=== PATIENT | female | born 1975 | race African-American/Black ===

== ENCOUNTER 2025-04-08 11:06 | Day surgery (SDC) | payer BC ==
[2025-04-08 08:20] LABS: Absolute Lymphocytes (CBC) 2.3 K/uL (0.7-4.9); Hematocrit 42.9 % (36.0-45.0); Hemoglobin 14.2 g/dL (12.0-15.0); MCH 26.6 pg (27.0-35.0); MCHC 33.0 g/dL (32.0-36.0); MCV 80.4 fL (80-100); MPV 9.1 fL (7.6-11.3); Nucleated RBC Absolute Count 0.0 (0-0); Nucleated Red Blood Cells % 0.1 % (0-0); RBC Red Blood Cell Count 5.34 M/uL (3.86-4.86); White Blood Count 5.60 thou/uL (4.3-10.9)
[2025-04-08 08:37] LABS: ALT/SGPT 26.0 U/L (13-56); AST/SGOT 20.0 U/L (15-37); Albumin 3.4 g/dL (3.4-5.0); Albumin/Globulin Ratio 0.9 (1.1-1.8); Alkaline Phosphatase 51.0 U/L (45-117); Anion Gap 10.2 mEq/L (5.0-15.0); BUN Blood Urea Nitrogen 11.0 mg/dL (7-18); Bilirubin Indirect, Calculated 0.5 mg/dL (0.2-0.8); Globulin 3.7 g/dL (2.3-3.5); Glucose Level 103.0 mg/dL (74-106); Lipase 28.0 U/L (13-75); Potassium 4.2 mEq/L (3.5-5.1)
--- NOTE | 2025-04-08 08:38 | RAD REPORT ---
EXAMINATION: TWO VIEW CHEST XR CLINICAL INDICATION: pre op for day surgery TECHNIQUE: 2 views of the chest was performed. COMPARISON: No prior exam. FINDINGS: The lungs are well inflated and clear. The heart is upper limit of normal in size. No displaced fract ures evident. IMPRESSION: No acute or significant abnormalities.
[2025-04-08] MEDS ORDERED: Ringers Lactate 1,000 ML IV ONE (11:33)
[2025-04-08] MEDS ORDERED: BUPIVACAINE 0.5% PF 10 ML VIAL ONE (12:52)
[2025-04-08] MEDS ORDERED: MIDAZOLAM HCL 2 MG/2 ML INJ ONE (13:10)
[2025-04-08] MEDS ORDERED: ONDANSETRON 4 MG/2 ML VIAL ONE (13:10)
[2025-04-08] MEDS ORDERED: LIDOCAINE 2% MPF 5 ML VIAL ONE (13:10)
[2025-04-08] MEDS ORDERED: ROCURONIUM 50 MG/5 ML VIAL IV ONE (13:10)
[2025-04-08] MEDS ORDERED: FENTANYL CITR 100 MCG/2 ML ONE (13:10)
[2025-04-08] MEDS ORDERED: SUGAMMADEX SODIUM 200 MG/2 ML VIAL IV ONE (13:15)
[2025-04-08] MEDS: CEFOXITIN SODIUM 1 GM/VIAL ONE (13:45)
[2025-04-08] MEDS ORDERED: KETOROLAC 30 MG/ML INJ ONE (14:26)
--- NOTE | 2025-04-08 14:53 | P.BOP ---
Preoperative diagnosis: acute cholecystitis, symptomatic cholelithiasis, tender umbilical hernia Postoperative diagnosis: same Primary procedure: Laparoscopic cholecystectomy Secondary procedure: Open repair of 2 cmUmbilical hernia Estimated blood loss: <10cc Specimen: gb, sac Findings: as above Anesthesia: General Complications: None Transferred to: Recovery Room Condition: Good
[2025-04-08] MEDS ORDERED: HYDROCODONE/APAP 10/325 TAB ONE (16:37)
[2025-04-08] MEDS: HYDROCODONE/APAP 10/325 TAB PO ONE (16:39)
[2025-04-08] MEDS: ONDANSETRON 4 MG/2 ML VIAL ONE (16:44)
[2025-04-08 16:54] VITALS: BP 159/72; TEMP 97.7; O2SAT 95
--- NOTE | 2025-04-08 20:28 | OP ---
Date of Procedure: 04/08/2025 Surgeon: Garcia Palm MD Preoperative Diagnoses: Acute cholecystitis, symptomatic cholelithiasis, tender umbilical hernia, ri ght upper quadrant abdominal pain. Postoperative Diagnoses: Acute cholecystitis, symptomatic cholelithiasis, tender umbilical hernia, r ight upper quadrant abdominal pain. Procedures: Laparoscopic cholecystectomy, open repair of umbilical hernia, incarcerated umbilical he rnia. Estimated Blood Loss: Less than 10 cc. Specimen: Gallbladder and hernia sac. Findings: As above. Inflamed, edematous gallbladder. Anesthesia: General plus local. Complications: None. Indications: This is a case of a 49-year-old patient who came to us with several problems, acute cho lecystitis, symptomatic cholelithiasis, went to the ER previously, also found to have umbilical herni a. The benefits, alternatives, and risks of laparoscopic cholecystectomy, laparoscopic possible open with umbilical hernia repair fully explained, which include, but not limited to, infection, bleeding , damage to adjacent structures, anesthesia complication, choledocholithiasis, bile leak, pancreatiti s, [place], and even . She also understands this may not relieve any symptoms, she might need more t garza one surgical intervention. She understood, signed a consent. Description Of Procedure: The patient was brought to the operating room, placed in supine position. Anesthesia was induced without complication. Abdominal area was prepped and draped in sterile fashi on. Local anesthesia was applied followed by sharp incision of the skin in the infraumbilical region . Incision was carried down to fascia, while we noticed the patient to have an umbilical hernia. Th ere was an incarcerated omentum, but once the hernia sac was opened, that omentum was just ligated to make sure there was no bleeding, retracting the abdominal cavity and the hernia sac was removed. We were able to open that a little bit more, cleaned the fascial edges, and then we were able to put Vi cryl #1 inside of the fascia. Bc trocar was carefully introduced. Pneumoperitoneum was obtained . I placed three more trocars under direct vision, one in the epigastric area, two in the right uppe r quadrant using the same technique, which consisted of local anesthetic, sharp incision of the skin, introduction of the trocars under direct vision. I proceeded to put the gallbladder in the inferola teral fashion exposing the triangle of Calot, obtaining critical view. Cystic duct and cystic artery were clearly isolated and freed circumferentially, and a connection between those and the gallbladde r were clearly identified. I proceeded to ligate those by using at least 3 clips proximal, 1 clip di stal, ligation in the middle. Same was done with the cystic artery. No bile leak. No bleeding. Th e gallbladder was removed from the liver using Bovie cauterizer and removed from the abdominal cavity using EndoCatch through the umbilical incision. The area was inspected once again. No bile leak. No bleeding. At that moment, I proceeded to remove the trocars under direct vision, deflated pneumop eritoneum, closed the umbilical hernia, and the fascia with #1 Vicryl. Irrigated subcutaneous tissue , closed that with 3-0 chromic and the skin in a subcuticular fashion with 3-0 Monocryl and Steri-Str ips on top. Sponge counts and instrument counts were correct. The patient tolerated the procedure w ell. The patient was sent to recovery in stable condition. GIGI/ADRLENE Voice ID: [id number] Report ID: [id number]
--- NOTE | 2025-04-08 20:32 | DS ---
Date of Discharge: 04/08/2025 Diagnoses: Acute cholecystitis, symptomatic cholelithiasis, tender umbilical hernia. Procedures: Laparoscopic cholecystectomy. Open repair of umbilical hernia. Condition: Stable. Disposition: Home. Activity: As tolerated. No heavy lifting. Discharge Instructions: Follow up in my office in 1 week. Call for appointment at [phone]. Keep a lisa dry for 48 hours, then may shower. Keep Steri-Strips intact. The patient was sent home on antib iotics. We have called prescription. We also specified the use of she does not have any allergies to hydrocodone or any rash or any fever or any shortness of breath. So, we are going to co ntinue with the treatment. She was advised not to do heavy lifting. GIGI/DARLENE Voice ID: [id number] Report ID: [id number]
== END 2025-04-08 17:27 | disposition home or self-care (01) ==
LOC: PRE 11:06 → OR 17:27
PROVIDERS: ATTEND Surgery
PROC: 0WQF0ZZ Repair Abdominal Wall, Open Approach (ICD-10-PCS; 2025-04-08)
PROC: 0FT44ZZ Resection of Gallbladder, Percutaneous Endoscopic Approach (ICD-10-PCS; principal; 2025-04-08 12:30)
DX: K80.10 Calculus of gallbladder with chronic cholecystitis without obstruction (principal); K42.9 Umbilical hernia without obstruction or gangrene; R10.11 Right upper quadrant pain
CPT/HCPCS: 93005; 85025; 80048; 36415; 84703; 80076; 88302; 88304; 83690; 71046; 47562; 49592; J2704; J2003; J2250; J3010; J1100; J0694; J2405 ×2; J7120; J1885